=== PATIENT | male | born 1965 | race Two or more races ===

== ENCOUNTER 2023-12-09 00:13 | Emergency (ER) | payer OTHER, SELFPAY ==
[2023-12-09 00:16] VITALS: BP 170/112
[2023-12-09 00:40] LABS: % Basophils 0.4 % (0-2); % Eosinophils 1.3 % (0-6); % Immature Granulocytes 0.8 % (0-0.5); % Lymphocytes 30.4 % (20.5-51.1); % Monocytes 9.6 % (1.7-9.3); % Neutrophils 57.5 % (42.2-75.2); Absolute Eosinophils 0.1 10^3/uL (0-0.7); Absolute Immature Granulocytes 0.1 10^3/uL (0-0.05); Absolute Lymphocytes 2.4 10^3/uL (1.2-3.4); Absolute Monocytes 0.7 10^3/uL (0.1-0.6); Absolute Neutrophils 4.4 10^3/uL (1.4-6.5); Hematocrit 44.6 % (39.0-52.0); Hemoglobin 15.8 g/dL (13.0-18.0); Mean Corp Hgb Conc. 35.4 g/dL (33.0-37.0); Mean Corpuscular Volume 87.6 fL (80.0-94.0); Mean Platelet Volume 10.8 fL (7.4-10.4); Nucleated Red Blood Cells % 0 % (-); Platelet Count 141 10^3/uL (130-400); Red Blood Cell Count 5.09 10^6/uL (4.70-6.10); Red Cell Dist. Width 13.1 % (11.5-14.5); White Blood Cell Count 7.7 10^3/uL (4.8-10.8)
[2023-12-09 00:48] LABS: ALT (SGPT) 22 U/L (0-50); AST (SGOT) 26 U/L (17-59); Albumin 4.8 g/dl (3.5-5.0); Alkaline Phosphatase 83 U/L (38-126); Blood Urea Nitrogen 11 mg/dl (9-20); Calcium 9.3 mg/dl (8.4-10.2); Carbon Dioxide 23 mmol/L (22-30); Chloride 105 mmol/L (98-107); Glucose 117 mg/dl (70-99); Potassium 3.7 mmol/L (3.5-5.1); Sodium 135 mmol/L (135-145); Total Bilirubin 0.5 mg/dl (0.2-1.3); Total Protein 7.3 g/dl (6.3-8.2); eGFR > 60.00
[2023-12-09 00:59] LABS: Troponin I < 0.012 ng/ml
[2023-12-09 01:49] VITALS: BP 168/97
[2023-12-09 02:00] VITALS: BP 157/104
--- NOTE | 2023-12-09 02:10 | ED.GENMED ---
History of Present Illness
General
Chief Complaint: Cardiac Symptoms
Source: patient and family (Son is interpreting)
Exam Limitations: other (Language barrier)
Time Seen by Provider: 12/09/23 01:56
Travel History
Have you had any contact with someone who has COVID-19?: No
Do you have any symptoms of coronavirus? Fever > 100 degrees, chills, cough, shortness of breath, sore throat, loss of taste or smell, muscle aches, or headache?: No
History of Present Illness
History of Present Illness:
This is a 58 year old male that comes in with c/o hypertension and chest pain. Son states that he had a headache so he checked his BP. States that his BP was 170/110. States that his heart was beating fast and he had chest pain. States that this
was 3-4 hour ago. States that his headache is gone along with his chest pain. Son states that he was seen by the PCP on Thursday and his BP medication was increased to 5 mg. Denies any fever, chills, SOB, abd pain, nausea, vomiting, diarrhea,
dizziness, urinary burning.
Past History
Past History
ED Past Medical History: HTN
ED Past Surgical History: None
Social History
Tobacco: Smoker
Alcohol: Occasional
Personal:
Living: with family
Review of Systems
Review of Systems
All Other Systems: ROS reviewed and negative except as documented in HPI and ROS
Constitutional: Reports no symptoms; Denies fever or chills
EENT: Reports no symptoms
Respiratory: Reports no symptoms; Denies cough or trouble breathing
Cardiac: Reports chest pain
ABD/GI: Reports no symptoms; Denies abdominal pain, nausea, vomiting or diarrhea
: Reports no symptoms; Denies dysuria, frequency or urgency
Musculoskeletal: Reports no symptoms
Skin: Reports no symptoms
Neurological: Reports headache; Denies dizzy
Psychiatric: Reports no symptoms
Phy Exam
General Physical Exam
General Presentation: well appearing and no apparent distress
General age: appears stated age
General Skin: warm and dry
General Habitus: normal
General Mental: alert
General Hydration: appears well hydrated
ENT Exam
ENT Exam: TM's normal, pharynx normal and neck supple
Eye Exam
Eye Exam: EOMI
Cardiovascular Exam
Cardiovascular Exam: regular rate/rhythm, no edema, no murmur and normal peripheral pulses
Pulmonary Exam
Pulmonary Exam: lungs clear, no respiratory distress, no rales, chest non tender, no crackles, no rhonchi, no wheezing and no cough
Gastrointestinal Exam
Gastrointestinal Exam: normal bowel sounds, non tender, soft, no organomegaly, no pulsatile mass and non distended
Musculoskeletal Exam
Musculoskeletal Exam: full ROM and no edema
Skin Exam
Skin Exam: normal color, warm/dry, no rash and no petechia
Psychiatric Exam
Psychiatric Exam: normal mood/affect
Course
Orders/Labs/Results
Orders:
Orders
12/09/23 00:19
Electrocardiogram (*1) Urgent
Reason for Study: Hypertension, Benign
EKG- Treatment ONCE
12/09/23 00:28
CMP [Comprehensive Metabolic Panel] Urgent
Complete Blood Count/With Diff Urgent
Troponin I Urgent
12/09/23 02:08
EKG- Treatment ONCE
CR Chest - 2 Views Urgent
Comment:
Reason For Exam: Chest pain
12/09/23 02:10
HydrALAZINE [Apresoline] 5 mg IV NOW STA
12/09/23 03:22
Troponin I Urgent
Abnormal Lab Results
12/09/23
00:28
MPV 10.8 H fL
(7.4-10.4)
Abs Immat Gran (auto) 0.1 H 10^3/uL
(0-0.05)
Absolute Monos (auto) 0.7 H 10^3/uL
(0.1-0.6)
Immature Gran % 0.8 H %
(0-0.5)
Monocytes % 9.6 H %
(1.7-9.3)
Glucose 117 H mg/dl
(70-99)
12/09/23 00:28
12/09/23 00:28
Glucose nonfasting. Troponin <0.012. Second Troponin <0.012
Vital Signs
Initial and Last Documented VS:
Initial Vital Signs
Temp Pulse Resp BP Pulse Ox
97.9 F 96 22 170/112 97
12/09/23 00:16 12/09/23 00:16 12/09/23 00:16 12/09/23 00:16 12/09/23 00:16
Last Documented Vital Signs
Temp Pulse Resp BP Pulse Ox
97.9 F 69 13 156/92 96
12/09/23 00:16 12/09/23 04:00 12/09/23 04:00 12/09/23 04:00 12/09/23 04:00
MDM/Problems Addressed
Differential Diagnosis Includes:
Hypertension, CT
MDM/Problems Addressed:
This is a 58 year old male that comes in with c/o chest and hypertension. Son state that he had a headache so he took his BP. States that this was elevated and then he felt like his heart was beating fast and had chest pain. Patient was seen by the
PCP on Thursday and his BP medication was increased.
Will get labs, ECG, Chest x-ray.
Back into see patient and son. Explained that his BP has come down to 142/94. His blood work and chest x-ray are normal. As long as his Second Troponin is normal patient will be discharged home. Patient to follow up with the Family doctor for
recheck since he just increased his Medication on Thursday. Patient to return with any concerns.
Chronic conditions affecting care: HTN
Acute Exacerbation and/or Progression of Chronic Illness: HTN
*Radiology
Radiology exam reviewed: preliminary read by ED provider (Chest- Negative for active disease. )
*Pulse Oximetry
Patient hypoxic: no
*EKG
Interpreted by ED Provider?: Yes
Heart Rate: 88
Rate: normal
Rhythm: sinus
Bradley: normal axis
Interval: normal interval
QRS Pattern: normal QRS
Ischemia: no ischemia
*Slabbing Machine Operator Interpretation
Rate: normal
Heart Rate: 88
Rhythm: sinus
*Critical Care Note
Total Time (30-74mins, 75-104mins- exclusive of procedures): Not Applicable
ED Attending Note
-
Portions of this chart may have been created with voice recognition software.� Occasional wrong word or��sound alike� substitutions may have occurred due to the inherent limitations of voice recognition software.
Discharge Plan
Departure
Patient Disposition: Home (Routine Discharge)
Date of Disposition: 12/09/23
Time of Disposition: 03:09
Patient with high blood pressure during this ER visit?: Yes
Condition: Good
Covid-19: Not Applicable
Discharge Problem:
Hypertension, Chest pain
Instructions: Chest Pain (DC), Chest Pain PCP Follow Up, BLOOD PRESSURE
Activity Restrictions/Additional Instructions:
As discussed, your blood work is normal. Your Chest x-ray is normal. Please call the family doctor and follow up with him in the next 2- 3 days. Please continue with your medication as directed. IF YOU HAVE INCREASED OR CHANGING CHEST PAIN, OR YOU
HAVE ANY OTHER CONCERNS PLEASE RETURN TO THE EMERGENCY ROOM.
Interventions
Interventions:
*Risk Screen - Suicide Last Done: 12/09/23 00:16
*General Assessment Last Done: 12/09/23 01:54
*Neglect/Abuse Screening Last Done: 12/09/23 00:16
ED- Fall Risk Assessment Last Done: 12/09/23 01:54
*Nursing Disposition Last Done: 12/09/23 04:30
ED- Pulmonary Assessment Last Done: 12/09/23 01:54
ED- Cardiac Assessment Last Done: 12/09/23 01:54
Discharge Date and Time
Discharge Date/Time: 12/09/23 04:30
[2023-12-09] MEDS: APRESOLINE 5 MG IV (02:14)
[2023-12-09 03:02] VITALS: BP 142/94
[2023-12-09 04:00] VITALS: BP 156/92
[2023-12-09 04:12] LABS: Troponin I < 0.012 ng/ml
== END 2023-12-09 04:30 | disposition home or self-care (01) ==
LOC: EMR 00:13
PROVIDERS: Clinical Nurse Specialist Family Health; EMERGENCY PHYSICIAN Student in an Organized Health Care Education/Training Program; FAMILY PHYSICIAN Internal Medicine
DX: I10 Essential (primary) hypertension (principal); R07.89 Other chest pain; R51.9 Headache, unspecified; F17.200 Nicotine dependence, unspecified, uncomplicated
CPT/HCPCS: 99283; 96374; 71046; 80053; 84484; 85025; 93005